=== PATIENT | male | born 1940 | race Caucasian/White ===

== ENCOUNTER 2017-10-27 09:54 | Emergency (ER) | payer MEDICARE, OTHER ==
[~2017-10-27] VITALS: Ht 185.4 cm; Wt 103.0 kg
[2017-10-27] MEDS ORDERED: CEFU500T30 PO (10:18)
[2017-10-27] MEDS ORDERED: Silvadene20 GM TOP (10:18)
[2017-10-27] MEDS ORDERED: Metformin HCl1000 MG PO (10:19)
[2017-10-27] MEDS ORDERED: TRADJENTA5 MG PO (10:19)
[2017-10-27] MEDS ORDERED: Zestril40 MG PO (10:19)
[2017-10-27] MEDS ORDERED: Pravastatin Sod40 MG PO (10:20)
[2017-10-27] MEDS ORDERED: Fish Oil 10001000 MG PO (10:20)
[2017-10-27] MEDS ORDERED: HYDCHL25 PO (10:20)
[2017-10-27] MEDS ORDERED: ASPI81CH PO (10:20)
[2017-10-27] MEDS ORDERED: Cleocin HCl300 MG PO (10:43)
== END 2017-10-27 10:53 | disposition home or self-care (01) ==
LOC: ER 09:54
DX: L27.1 Localized skin eruption due to drugs and medicaments taken internally (principal); T36.1X5A Adverse effect of cephalosporins and other beta-lactam antibiotics, initial encounter; E11.9 Type 2 diabetes mellitus without complications; Z79.84 Long term (current) use of oral hypoglycemic drugs; Z79.899 Other long term (current) drug therapy; Z79.82 Long term (current) use of aspirin; Z87.891 Personal history of nicotine dependence
CPT/HCPCS: 99282